=== PATIENT | female | born 1995 | race Caucasian/White ===

== ENCOUNTER 2020-05-23 01:54 | Emergency (ER) | payer OTHER ==
[~2020-05-23] VITALS: Ht 149.9 cm; Wt 63.5 kg
[2020-05-23 02:00] VITALS: BP_SYST 116
--- NOTE | 2020-05-23 02:00 | NUR ---
Patient to ER bed HALLWAY to [facility] for evaluation. Side rails up. Report given to SHARYN.
--- NOTE | 2020-05-23 02:00 | NUR ---
Patient to ER CHAIR to [facility] for evaluation.
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
--- NOTE | 2020-05-23 02:05 | NUR ---
ER Dr. HUITRON at bedside examining patient.
--- NOTE | 2020-05-23 02:32 | NUR ---
Written and verbal consent obtained from patient for blood alcohol, name and verified by patient. Disinfected patient's skin with Iodine that did not contain alcohol or other volatile organic compound. Collected the blood from the subject named by venipuncture, in the presence of Officer BRENDA Travis. Used a sterile, dry hypodermic needle and dry vacuum blood collection. Two dry vacuum blood collection was supplied by the officer named above. Withdrew a specimen of blood from LAC of the subject named above. Inverted both blood tubes several times to ensure that the preservative and anticoagulant were thoroughly mixed in the blood specimen. I initialed both blood tube labels for identification. The labeled blood tubes were handed directly to the Officer named above. The blood tubes stopper remained in place while I had possession of the blood tubes. The Officer placed tubes into envelope and sealed it in my presence. Envelope initialed by myself and Officer named above. Patient tolerated well, bandage applied, and bleeding controlled.
[2020-05-23 02:36] VITALS: BP_SYST 116
--- NOTE | 2020-05-23 02:36 | NUR ---
Patient given written and verbal discharge instructions and verbalizes understanding. ER MD discussed with patient the results and treatment provided. Patient in stable condition. ID arm band removed. IV blood draw catheter removed intact and dressing applied, no active bleeding. No RX given. Patient educated on pain management and to follow up with PMD. Pain Scale 0/10. Opportunity for questions provided and answered. Medication side effect fact sheet provided.
== END 2020-05-23 02:36 ==
LOC: SED 01:54
DX: Z04.3 Encounter for examination and observation following other accident (principal); V49.9XXA Car occupant (driver) (passenger) injured in unspecified traffic accident, initial encounter; Y93.89 Activity, other specified; Y92.413 State road as the place of occurrence of the external cause; Y99.8 Other external cause status
CPT/HCPCS: 99283